=== PATIENT | male | born 1955 | race African-American/Black ===

== ENCOUNTER 2018-07-17 09:31 | Emergency (ER) | payer SELFPAY ==
[~2018-07-17] VITALS: Ht 175.3 cm; Wt 134.0 kg
[~2018-07-17 09:31] MED LIST: ALBU18HF2 IH; HYDR12.529 PO; LISI-186 PO; LORA10TA7 PO; METF-414 PO; cholesterol
[2018-07-17 10:30] VITALS: BP 140/81
[2018-07-17] MEDS ORDERED: KETOROLAC 60MG/2ML VIAL IM ONE (11:00)
== END 2018-07-17 12:35 | disposition home or self-care (01) ==
LOC: ER 09:31
DX: S90.31XA Contusion of right foot, initial encounter (principal); M10.9 Gout, unspecified; E78.00 Pure hypercholesterolemia, unspecified; I10 Essential (primary) hypertension; F17.200 Nicotine dependence, unspecified, uncomplicated; X58.XXXA Exposure to other specified factors, initial encounter; Y93.89 Activity, other specified; Y92.89 Other specified places as the place of occurrence of the external cause; Y99.8 Other external cause status; Z79.899 Other long term (current) drug therapy
CPT/HCPCS: 73620; 96372; 99283; J1885; Z7610

== ENCOUNTER 2020-08-27 10:15 | Inpatient (IN) | payer OTHER ==
[~2020-08-27] VITALS: Ht 182.9 cm; Wt 131.2 kg
[~2020-08-27 10:15] MED LIST changes: -cholesterol; +cholesterol PO
[2020-08-27] MEDS ORDERED: METOPROLOL TARTRATE 5MG/5ML VIAL IV STA (10:49)
[2020-08-27] MEDS ORDERED: FUROSEMIDE 40MG/4ML VIAL IV ONE (11:00)
[2020-08-27] MEDS ORDERED: ASPIRIN 325MG EC TABLET PO ONE (11:00)
[2020-08-27] MEDS ORDERED: NITROGLYCERIN OINT 1GM/INCH UDPKT TD ONE (11:00)
[2020-08-27 11:17] LABS: BASOPHILS % 1.1 % (0.0-2.0); EOSINOPHILS % 1.2 % (0.0-5.0); HEMATOCRIT. 44.3 % (42.0-52.0); HEMOGLOBIN. 14.6 g/dL (14.0-18.0); LYMPHOCYTES % 19.3 % (20.0-50.0); MEAN CORPUSCULAR HEMOGLOBIN 26.9 pg (28.0-32.0); MEAN CORPUSCULAR VOLUME 81.4 fL (80.0-94.0); MONOCYTES % 14.9 % (2.0-8.0); NEUTROPHILS % 63.5 % (40.0-76.0); PLATELET 259 x1000/uL (130-400); RED BLOOD CELL COUNT 5.44 mill/uL (4.7-6.1); RED CELL DISTRIBUTION WIDTH 16.7 % (11.6-14.6)
[2020-08-27 11:22] LABS: CHLORIDE 111 mEq/L (98-107)
[2020-08-27] MEDS ORDERED: METOPROLOL TARTRATE 5MG/5ML VIAL IV PRN (14:45)
[2020-08-27] MEDS ORDERED: POTASSIUM CHLORIDE 20MEQ TABLET SR PO SCH (15:00)
[2020-08-27] MEDS: METOPROLOL TARTRATE 25MG TABLET PO SCH ×2 (15:24→23:00)
[2020-08-27] MEDS: ENOXAPARIN 40MG/0.4ML SYR SUBCUT SCH (17:00)
[2020-08-27] MEDS ORDERED: FUROSEMIDE 40MG/4ML VIAL IVP SCH ×2 (17:00→20:45)
[2020-08-27 17:30] VITALS: BP 136/115
[2020-08-27] MEDS ORDERED: CLONIDINE 0.1MG TABLET PO PRN (17:30)
[2020-08-27] MEDS ORDERED: NA PHOS,M-B/NA PHOS,DI-BA ENEMA 118ML PR PRN (17:30)
[2020-08-27] MEDS ORDERED: DIPHENHYDRAMINE 50MG/ML VIAL IV PRN (17:30)
[2020-08-27] MEDS ORDERED: LORAZEPAM 0.5MG TABLET PO PRN (17:30)
[2020-08-27] MEDS ORDERED: ONDANSETRON HCL 4MG/2ML INJ IV PRN (17:30)
[2020-08-27] MEDS ORDERED: ACETAMINOPHEN 650MG SUPP PR PRN (17:30)
[2020-08-27] MEDS ORDERED: MAGNESIUM/ALUMINUM HYDROXIDE/SIMETHICONE 30ML UDC PO PRN (17:30)
[2020-08-27] MEDS ORDERED: DEXTROSE 50% WATER 50ML SYRINGE IV PRN (17:30)
[2020-08-27] MEDS ORDERED: IPRATROPIUM/ALBUTEROL 0.5-3(2.5)MG/3ML NEB NEB PRN (17:30)
[2020-08-27] MEDS ORDERED: DOCUSATE SODIUM 100MG CAPSULE PO PRN (17:30)
[2020-08-27] MEDS ORDERED: MORPHINE SULFATE 2 MG/ML CPJ (NOT FOR IM USE) IV PRN (17:30)
[2020-08-27] MEDS ORDERED: ACETAMINOPHEN 325MG TABLET PO PRN (17:30)
[2020-08-27] MEDS: BLOOD SUGAR DIAGNOSTIC STRIP TEST SCH ×2 (18:00→21:00)
[2020-08-27] MEDS ORDERED: METHYLPREDNISOLONE SOD SUCC 40 MG/ML VIAL IV SCH (18:00)
[2020-08-27] MEDS ORDERED: LEVOFLOXACIN 500MG PREMIX 100 ML IV SCH (18:00)
[2020-08-27] MEDS: INSULIN LISPRO 100 UNITS/ML SUBCUT SCH ×2 (18:14→21:00)
[2020-08-27] MEDS ORDERED: INDO-13 PO (18:23)
[2020-08-27 18:34] VITALS: BP 136/115
[2020-08-27 19:29] LABS: BG BASE EXCESS -2.4 mmol/L (-2.0-2.0); BG CARBOXYHEMOGLOBIN 1.1 % (0.5-1.5); BG DEOXYHEMOGLOBIN 5.6 % (0.0-5.0); BG HCO3 ACT 20.5 mmol/L (22.0-26.0); BG METHEMOGLOBIN 0.1 % (0.0-1.5); BG OXYGEN SATURATION 94.3 % (92.0-98.5); BG OXYHEMOGLOBIN 93.2 % (94.0-97.0); BG PCO2 30.9 mmHg (35.0-45.0); BG PH 7.439 (7.350-7.450); BG PO2 69.5 mmHg (75.0-100.0); BG SAMPLE SITE LEFT RADIAL; BG TOTAL HEMOGLOBIN 15.9 g/dL (12.0-18.0); BG VENT MODE ROOM AIR
[2020-08-27 20:00] VITALS: BP 94/54
[2020-08-27] MEDS ORDERED: PNEUMOCOCCAL 23-VAL P-SAC VAC 0.5 ML IM ONE (20:00)
[2020-08-27 20:14] LABS: CHLORIDE 110 mEq/L (98-107)
[2020-08-27 20:20] LABS: INR 1.2; PROTHROMBIN TIME 12.8 sec (9.6-11.0)
[2020-08-27] MEDS: FAMOTIDINE 20MG TABLET PO SCH (21:59)
[2020-08-27] MEDS: METHYLPREDNISOLONE SOD SUCC 40 MG/ML VIAL IV SCH (22:26)
[2020-08-27] MEDS: LEVOFLOXACIN 500MG PREMIX 100 ML IV SCH (22:27)
[2020-08-27] MEDS: HYDROCODONE/ACETAMINOPHEN 5/325MG TABLET PO PRN (22:43)
[2020-08-27 23:47] LABS: CREATINE KINASE MB FRACTION 2.7 ng/mL (0.5-3.6)
[2020-08-28] VITALS (8 sets, daily range): BP systolic 94–132; BP diastolic 55–94
[2020-08-28 03:02] LABS: CLARITY URINE CLOUDY (CLEAR); COLOR URINE YELLOW (YELLOW); KETONES URINE NEGATIVE (NEGATIVE); LEUKOCYTE ESTERASE URINE NEGATIVE (NEGATIVE); NITRITE URINE NEGATIVE (NEGATIVE); OCCULT BLOOD URINE NEGATIVE (NEGATIVE); PROTEIN URINE 2+ (NEGATIVE); SPECIFIC GRAVITY URINE 1.013 (1.005-1.030)
[2020-08-28 03:17] LABS: *AMPHETAMINES SCREEN URINE NEGATIVE (NEGATIVE); *BARBITURATES SCREEN URINE NEGATIVE (NEGATIVE); *BENZODIAZEPINES SCREEN URINE NEGATIVE (NEGATIVE); *COCAINE SCREEN URINE NEGATIVE (NEGATIVE); METHADONE URINE SCREEN NEGATIVE (NEGATIVE); OPIATES URINE SCREEN NEGATIVE (NEGATIVE)
[2020-08-28 03:18] LABS: CANNABINOID URINE SCREEN NEGATIVE (NEGATIVE); PHENCYCLIDINE URINE SCREEN NEGATIVE (NEGATIVE)
[2020-08-28 06:24] LABS: BASOPHILS % 0.8 % (0.0-2.0); EOSINOPHILS % 0.1 % (0.0-5.0); HEMATOCRIT. 49.9 % (42.0-52.0); HEMOGLOBIN. 16.6 g/dL (14.0-18.0); LYMPHOCYTES % 13.6 % (20.0-50.0); MEAN CORPUSCULAR HEMOGLOBIN 27.4 pg (28.0-32.0); MEAN CORPUSCULAR VOLUME 82.4 fL (80.0-94.0); MEAN PLATELET VOLUME 8.6 fl (7.4-10.4); NEUTROPHILS % 82.5 % (40.0-76.0); PLATELET 210 x1000/uL (130-400); RED BLOOD CELL COUNT 6.06 mill/uL (4.7-6.1); RED CELL DISTRIBUTION WIDTH 16.9 % (11.6-14.6)
[2020-08-28 06:30] LABS: T4 FREE 1.3 ng/dL (0.76-1.46)
[2020-08-28 06:32] LABS: CREATINE KINASE MB FRACTION 2.8 ng/mL (0.5-3.6)
[2020-08-28 06:33] LABS: PROSTRATE SPECIFIC AG TOTAL 0.57 ng/mL (0.0-4.0)
[2020-08-28] MEDS: ENOXAPARIN 40MG/0.4ML SYR SUBCUT SCH ×2 (06:38→19:00)
[2020-08-28] MEDS: BLOOD SUGAR DIAGNOSTIC STRIP TEST SCH ×3 (06:38→21:10)
[2020-08-28] MEDS: INSULIN LISPRO 100 UNITS/ML SUBCUT SCH ×4 (07:40→21:00)
[2020-08-28] MEDS: IPRATROPIUM/ALBUTEROL 0.5-3(2.5)MG/3ML NEB HHN SCH ×4 (09:05→22:06)
[2020-08-28] MEDS: METOPROLOL TARTRATE 25MG TABLET PO SCH (09:37)
[2020-08-28] MEDS: METHYLPREDNISOLONE SOD SUCC 40 MG/ML VIAL IV SCH (09:37)
[2020-08-28] MEDS: ASPIRIN 81MG EC TABLET PO SCH (09:37)
[2020-08-28] MEDS ORDERED: SODIUM POLYSTYRENE SULFONATE 15 G/60 ML BOT PO SCH (10:00)
[2020-08-28] MEDS ORDERED: DILTIAZEM HCL 30MG TABLET PO SCH (10:00)
[2020-08-28] MEDS: HYDROCODONE/ACETAMINOPHEN 5/325MG TABLET PO PRN ×2 (10:38→21:39)
[2020-08-28] MEDS ORDERED: LORAZEPAM 2MG/ML CPJ IV PRN (11:15)
[2020-08-28 14:13] LABS: BG BASE EXCESS -3.7 mmol/L (-2.0-2.0); BG CARBOXYHEMOGLOBIN 1.2 % (0.5-1.5); BG FRACTION INSPIRED OXYGEN 21; BG HCO3 ACT 20.3 mmol/L (22.0-26.0); BG METHEMOGLOBIN 0.1 % (0.0-1.5); BG OXYGEN SATURATION 93.9 % (92.0-98.5); BG OXYHEMOGLOBIN 92.7 % (94.0-97.0); BG PH 7.393 (7.350-7.450); BG PO2 72.4 mmHg (75.0-100.0); BG SAMPLE SITE LEFT RADIAL; BG TOTAL HEMOGLOBIN 16.2 g/dL (12.0-18.0); BG VENT MODE ROOM AIR
[2020-08-28] MEDS ORDERED: DOBUTAMINE 250MG PREMIX 250 ML IV SCH (15:00)
[2020-08-28] MEDS ORDERED: METHYLPREDNISOLONE SOD SUCC 40 MG/ML VIAL IV SCH (15:00)
[2020-08-28] MEDS: ISOSORB DINIT/HYDRALAZINE HCL 20/37.5MG TABLET PO SCH ×2 (16:09→21:36)
[2020-08-28] MEDS: CARVEDILOL 3.125 MG TABLET PO SCH ×2 (16:09→20:57)
[2020-08-28] MEDS: FAMOTIDINE 20MG TABLET PO SCH (20:57)
[2020-08-28] MEDS: GUAIFENESIN 200MG/10ML SUGAR FREE UDC PO PRN (21:16)
[2020-08-28] MEDS: LEVOFLOXACIN 500MG PREMIX 100 ML IV SCH (21:35)
[2020-08-28] MEDS: DOBUTAMINE 250MG PREMIX 250 ML IV SCH (23:30)
[2020-08-29] VITALS (12 sets, daily range): BP systolic 112–159; BP diastolic 42–95
[2020-08-29] MEDS: IPRATROPIUM/ALBUTEROL 0.5-3(2.5)MG/3ML NEB HHN SCH ×4 (01:38→21:13)
[2020-08-29] MEDS: ENOXAPARIN 40MG/0.4ML SYR SUBCUT SCH ×2 (05:46→17:58)
[2020-08-29] MEDS: ISOSORB DINIT/HYDRALAZINE HCL 20/37.5MG TABLET PO SCH ×3 (05:46→21:03)
[2020-08-29] MEDS: DOBUTAMINE 250MG PREMIX 250 ML IV SCH ×2 (05:56→23:47)
[2020-08-29 06:17] LABS: BASOPHILS % 0.3 % (0.0-2.0); HEMATOCRIT. 43.4 % (42.0-52.0); HEMOGLOBIN. 14.3 g/dL (14.0-18.0); LYMPHOCYTES % 11.6 % (20.0-50.0); MEAN CORPUSCULAR VOLUME 81.9 fL (80.0-94.0); MEAN PLATELET VOLUME 8.2 fl (7.4-10.4); MONOCYTES % 10.6 % (2.0-8.0); NEUTROPHILS % 77.5 % (40.0-76.0); PLATELET 234 x1000/uL (130-400); RED CELL DISTRIBUTION WIDTH 16.8 % (11.6-14.6)
[2020-08-29 06:18] LABS: CHLORIDE 106 mEq/L (98-107)
[2020-08-29 06:26] LABS: PHOSPHORUS 4.7 mg/dL (2.5-4.9)
[2020-08-29] MEDS: BLOOD SUGAR DIAGNOSTIC STRIP TEST SCH ×4 (06:27→20:36)
[2020-08-29] MEDS: INSULIN LISPRO 100 UNITS/ML SUBCUT SCH ×4 (07:20→20:38)
[2020-08-29] MEDS: ASPIRIN 81MG EC TABLET PO SCH (08:24)
[2020-08-29] MEDS: CARVEDILOL 3.125 MG TABLET PO SCH ×2 (08:25→21:02)
[2020-08-29] MEDS: METHYLPREDNISOLONE SOD SUCC 40 MG/ML VIAL IV SCH ×2 (08:25→17:58)
[2020-08-29] MEDS: FUROSEMIDE 40MG/4ML VIAL IVP SCH ×2 (10:31→17:58)
[2020-08-29] MEDS ORDERED: BISACODYL 5MG TABLET PO PRN (11:15)
[2020-08-29] MEDS: HYDROCODONE/ACETAMINOPHEN 5/325MG TABLET PO PRN ×2 (13:30→18:08)
[2020-08-29] MEDS: LEVOFLOXACIN 500MG TABLET PO SCH (14:28)
[2020-08-29] MEDS: FAMOTIDINE 20MG TABLET PO SCH (21:02)
[2020-08-30] VITALS (12 sets, daily range): BP systolic 125–164; BP diastolic 53–90
[2020-08-30] MEDS: IPRATROPIUM/ALBUTEROL 0.5-3(2.5)MG/3ML NEB HHN SCH ×4 (00:34→21:09)
[2020-08-30] MEDS: ENOXAPARIN 40MG/0.4ML SYR SUBCUT SCH ×2 (05:48→17:36)
[2020-08-30] MEDS: ISOSORB DINIT/HYDRALAZINE HCL 20/37.5MG TABLET PO SCH ×3 (05:48→21:34)
[2020-08-30] MEDS: BLOOD SUGAR DIAGNOSTIC STRIP TEST SCH ×4 (06:03→21:26)
[2020-08-30 06:30] LABS: BASOPHILS % 0.4 % (0.0-2.0); HEMATOCRIT. 44.1 % (42.0-52.0); HEMOGLOBIN. 14.5 g/dL (14.0-18.0); LYMPHOCYTES % 8.3 % (20.0-50.0); MEAN CORPUSCULAR HEMOGLOBIN 27.1 pg (28.0-32.0); MEAN CORPUSCULAR VOLUME 82.2 fL (80.0-94.0); MONOCYTES % 5.9 % (2.0-8.0); NEUTROPHILS % 85.4 % (40.0-76.0); PLATELET 225 x1000/uL (130-400); RED BLOOD CELL COUNT 5.37 mill/uL (4.7-6.1); RED CELL DISTRIBUTION WIDTH 17.2 % (11.6-14.6)
[2020-08-30 06:35] LABS: CHLORIDE 108 mEq/L (98-107)
[2020-08-30] MEDS: INSULIN LISPRO 100 UNITS/ML SUBCUT SCH ×4 (07:20→21:00)
[2020-08-30] MEDS: ASPIRIN 81MG EC TABLET PO SCH (08:51)
[2020-08-30] MEDS: METHYLPREDNISOLONE SOD SUCC 40 MG/ML VIAL IV SCH ×2 (08:53→16:17)
[2020-08-30] MEDS: FUROSEMIDE 40MG/4ML VIAL IVP SCH ×3 (08:53→20:12)
[2020-08-30] MEDS: CARVEDILOL 3.125 MG TABLET PO SCH (08:54)
[2020-08-30] MEDS: LEVOFLOXACIN 500MG TABLET PO SCH (11:13)
[2020-08-30] MEDS: FAMOTIDINE 20MG TABLET PO SCH (21:34)
[2020-08-30] MEDS: CARVEDILOL 6.25 MG TABLET PO SCH (21:35)
[2020-08-30] MEDS: HYDROCODONE/ACETAMINOPHEN 5/325MG TABLET PO PRN (21:35)
[2020-08-31] VITALS (12 sets, daily range): BP systolic 123–171; BP diastolic 57–81
[2020-08-31] MEDS: DOBUTAMINE 250MG PREMIX 250 ML IV SCH (00:08)
[2020-08-31] MEDS: ISOSORB DINIT/HYDRALAZINE HCL 20/37.5MG TABLET PO SCH ×3 (05:46→21:18)
[2020-08-31] MEDS: ENOXAPARIN 40MG/0.4ML SYR SUBCUT SCH ×2 (05:47→17:02)
[2020-08-31] MEDS: GUAIFENESIN 200MG/10ML SUGAR FREE UDC PO PRN (05:56)
[2020-08-31] MEDS: BLOOD SUGAR DIAGNOSTIC STRIP TEST SCH ×4 (06:01→20:34)
[2020-08-31 06:55] LABS: HEMATOCRIT. 44.7 % (42.0-52.0); HEMOGLOBIN. 14.9 g/dL (14.0-18.0); MEAN CORPUSCULAR HEMOGLOBIN 27.3 pg (28.0-32.0); MEAN CORPUSCULAR VOLUME 81.8 fL (80.0-94.0); MEAN PLATELET VOLUME 8.2 fl (7.4-10.4); PLATELET 271 x1000/uL (130-400); RED BLOOD CELL COUNT 5.46 mill/uL (4.7-6.1)
[2020-08-31 07:01] LABS: CHLORIDE 105 mEq/L (98-107)
[2020-08-31] MEDS: INSULIN LISPRO 100 UNITS/ML SUBCUT SCH ×4 (07:20→20:34)
[2020-08-31] MEDS: IPRATROPIUM/ALBUTEROL 0.5-3(2.5)MG/3ML NEB HHN SCH ×4 (08:38→21:06)
[2020-08-31] MEDS: METHYLPREDNISOLONE SOD SUCC 40 MG/ML VIAL IV SCH ×2 (09:03→17:02)
[2020-08-31] MEDS: ASPIRIN 81MG EC TABLET PO SCH (09:03)
[2020-08-31] MEDS: CARVEDILOL 6.25 MG TABLET PO SCH ×2 (09:03→20:34)
[2020-08-31] MEDS: FUROSEMIDE 40MG/4ML VIAL IVP SCH ×3 (09:04→17:02)
[2020-08-31] MEDS: LEVOFLOXACIN 500MG TABLET PO SCH (11:05)
[2020-08-31] MEDS: HYDROCODONE/ACETAMINOPHEN 5/325MG TABLET PO PRN (11:05)
[2020-08-31] MEDS: SPIRONOLACTONE 50MG TABLET PO SCH (12:52)
[2020-08-31 13:55] LABS: PLATELET ESTIMATE NORMAL
[2020-08-31] MEDS: FAMOTIDINE 20MG TABLET PO SCH (20:33)
[2020-09-01] VITALS (15 sets, daily range): BP systolic 114–188; BP diastolic 53–105
[2020-09-01] MEDS: DOBUTAMINE 250MG PREMIX 250 ML IV SCH (00:02)
[2020-09-01] MEDS: IPRATROPIUM/ALBUTEROL 0.5-3(2.5)MG/3ML NEB HHN SCH ×4 (01:55→20:17)
[2020-09-01] MEDS: ISOSORB DINIT/HYDRALAZINE HCL 20/37.5MG TABLET PO SCH ×3 (05:52→21:21)
[2020-09-01] MEDS: ENOXAPARIN 40MG/0.4ML SYR SUBCUT SCH ×2 (05:52→18:59)
[2020-09-01] MEDS: BLOOD SUGAR DIAGNOSTIC STRIP TEST SCH ×4 (05:52→21:21)
[2020-09-01 06:38] LABS: BASOPHILS % 0.3 % (0.0-2.0); HEMATOCRIT. 45.3 % (42.0-52.0); HEMOGLOBIN. 15.1 g/dL (14.0-18.0); LYMPHOCYTES % 7.4 % (20.0-50.0); MEAN CORPUSCULAR HEMOGLOBIN 27.2 pg (28.0-32.0); MEAN CORPUSCULAR VOLUME 81.4 fL (80.0-94.0); MEAN PLATELET VOLUME 8.2 fl (7.4-10.4); MONOCYTES % 9.2 % (2.0-8.0); NEUTROPHILS % 83.1 % (40.0-76.0); PLATELET 245 x1000/uL (130-400); RED BLOOD CELL COUNT 5.56 mill/uL (4.7-6.1); RED CELL DISTRIBUTION WIDTH 16.3 % (11.6-14.6)
[2020-09-01 06:55] LABS: CHLORIDE 105 mEq/L (98-107)
[2020-09-01] MEDS: INSULIN LISPRO 100 UNITS/ML SUBCUT SCH ×4 (07:20→21:00)
[2020-09-01] MEDS: METHYLPREDNISOLONE SOD SUCC 40 MG/ML VIAL IV SCH ×2 (09:59→17:51)
[2020-09-01] MEDS: CARVEDILOL 6.25 MG TABLET PO SCH ×2 (10:00→21:21)
[2020-09-01] MEDS: SPIRONOLACTONE 50MG TABLET PO SCH (10:00)
[2020-09-01] MEDS: FUROSEMIDE 40MG/4ML VIAL IVP SCH ×3 (10:00→18:59)
[2020-09-01] MEDS: ASPIRIN 81MG EC TABLET PO SCH (10:00)
[2020-09-01] MEDS: FAMOTIDINE 20MG TABLET PO SCH (21:21)
[2020-09-02] VITALS (12 sets, daily range): BP systolic 121–166; BP diastolic 46–106
[2020-09-02] MEDS: IPRATROPIUM/ALBUTEROL 0.5-3(2.5)MG/3ML NEB HHN SCH ×5 (02:58→21:29)
[2020-09-02] MEDS: BLOOD SUGAR DIAGNOSTIC STRIP TEST SCH ×4 (06:14→21:00)
[2020-09-02] MEDS: ISOSORB DINIT/HYDRALAZINE HCL 20/37.5MG TABLET PO SCH ×3 (06:14→21:55)
[2020-09-02] MEDS: ENOXAPARIN 40MG/0.4ML SYR SUBCUT SCH ×2 (06:17→17:28)
[2020-09-02 07:08] LABS: HEMATOCRIT 47.4 % (42.0-52.0); HEMOGLOBIN 15.4 g/dL (14.0-18.0); MEAN CORPUSCULAR HEMOGLOBIN 26.4 pg (28.0-32.0); MEAN CORPUSCULAR VOLUME 81.1 fL (80.0-94.0); PLATELET 303 x1000/uL (130-400); RED BLOOD CELL COUNT 5.85 mill/uL (4.7-6.1)
[2020-09-02 07:16] LABS: CHLORIDE 105 mEq/L (98-107)
[2020-09-02] MEDS: INSULIN LISPRO 100 UNITS/ML SUBCUT SCH ×4 (07:19→21:00)
[2020-09-02] MEDS: SPIRONOLACTONE 50MG TABLET PO SCH (08:40)
[2020-09-02] MEDS: FUROSEMIDE 40MG/4ML VIAL IVP SCH ×3 (08:40→17:28)
[2020-09-02] MEDS: ASPIRIN 81MG EC TABLET PO SCH (08:40)
[2020-09-02] MEDS: METHYLPREDNISOLONE SOD SUCC 40 MG/ML VIAL IV SCH ×2 (08:40→17:28)
[2020-09-02] MEDS: CARVEDILOL 6.25 MG TABLET PO SCH ×2 (08:41→21:54)
[2020-09-02] MEDS: HYDROCODONE/ACETAMINOPHEN 5/325MG TABLET PO PRN ×2 (10:13→14:29)
[2020-09-02] MEDS: FAMOTIDINE 20MG TABLET PO SCH (21:54)
[2020-09-02] MEDS: DOBUTAMINE 250MG PREMIX 250 ML IV SCH ×2 (23:03)
[2020-09-03] VITALS (16 sets, daily range): BP systolic 84–177; BP diastolic 21–100
[2020-09-03] MEDS: ISOSORB DINIT/HYDRALAZINE HCL 20/37.5MG TABLET PO SCH ×3 (06:00→22:15)
[2020-09-03] MEDS: BLOOD SUGAR DIAGNOSTIC STRIP TEST SCH ×4 (06:29→21:18)
[2020-09-03 07:20] LABS: BASOPHILS % 0.2 % (0.0-2.0); HEMATOCRIT. 50.6 % (42.0-52.0); HEMOGLOBIN. 16.6 g/dL (14.0-18.0); LYMPHOCYTES % 7.5 % (20.0-50.0); MEAN CORPUSCULAR HEMOGLOBIN 26.9 pg (28.0-32.0); MEAN CORPUSCULAR VOLUME 82.1 fL (80.0-94.0); MEAN PLATELET VOLUME 8.3 fl (7.4-10.4); MONOCYTES % 9.1 % (2.0-8.0); NEUTROPHILS % 83.2 % (40.0-76.0); PLATELET 258 x1000/uL (130-400); RED BLOOD CELL COUNT 6.16 mill/uL (4.7-6.1); RED CELL DISTRIBUTION WIDTH 16.5 % (11.6-14.6)
[2020-09-03 07:28] LABS: CHLORIDE 105 mEq/L (98-107)
[2020-09-03] MEDS: CARVEDILOL 6.25 MG TABLET PO SCH ×2 (08:05→12:21)
[2020-09-03] MEDS: INSULIN LISPRO 100 UNITS/ML SUBCUT SCH ×4 (08:05→21:19)
[2020-09-03] MEDS: SPIRONOLACTONE 50MG TABLET PO SCH ×2 (08:05→12:21)
[2020-09-03] MEDS: ASPIRIN 81MG EC TABLET PO SCH (08:06)
[2020-09-03] MEDS: METHYLPREDNISOLONE SOD SUCC 40 MG/ML VIAL IV SCH ×2 (08:10→17:43)
[2020-09-03] MEDS: FUROSEMIDE 40MG/4ML VIAL IVP SCH ×2 (08:10→12:22)
[2020-09-03] MEDS ORDERED: HEPARIN SODIUM 1,000 UNIT/1ML VIAL IV ONE (08:22)
[2020-09-03] MEDS ORDERED: NITROGLYCERIN 50MCG/ML 10ML VIAL (CATH LAB) IV ONE (08:22)
[2020-09-03] MEDS ORDERED: NICARDIPINE 100MCG/ML 10ML VIAL (CATH LAB) IV ONE (08:22)
[2020-09-03] MEDS: IPRATROPIUM/ALBUTEROL 0.5-3(2.5)MG/3ML NEB HHN SCH ×2 (08:30)
[2020-09-03] MEDS ORDERED: POTASSIUM CHLORIDE 20MEQ TABLET SR PO NR (12:15)
[2020-09-03] MEDS: HYDROCODONE/ACETAMINOPHEN 5/325MG TABLET PO PRN (12:22)
[2020-09-03] MEDS ORDERED: LIDOCAINE HCL 1% 20ML VIAL (Pyxis) INJ ONE (13:06)
[2020-09-03] MEDS ORDERED: IODIXANOL 320MG/ML 100 ML BOTTLE IV ONE (13:06)
[2020-09-03] MEDS ORDERED: ASPIRIN/SOD BICARB/CITRIC ACID 324MG TAB EFF ONE (13:22)
[2020-09-03] MEDS ORDERED: MIDAZOLAM HCL 2 MG/2 ML VIAL ONE (13:57)
[2020-09-03] MEDS ORDERED: FENTANYL CITRATE/PF 50MCG/ML 2ML VIAL ONE (13:57)
[2020-09-03] MEDS ORDERED: ATROPINE SULFATE 1MG/10ML SYR IV PRN (14:30)
[2020-09-03] MEDS ORDERED: ACETAMINOPHEN 325MG TABLET PO PRN (14:30)
[2020-09-03] MEDS ORDERED: ONDANSETRON HCL 4MG/2ML INJ IV PRN (14:30)
[2020-09-03] MEDS ORDERED: MORPHINE SULFATE 2 MG/ML CPJ (NOT FOR IM USE) IV PRN (14:30)
[2020-09-03] MEDS ORDERED: SODIUM CHLORIDE 0.45% 500 ML IV SCH (14:30)
[2020-09-03] MEDS: FAMOTIDINE 20MG TABLET PO SCH (21:20)
[2020-09-03] MEDS: FUROSEMIDE 40MG TABLET PO SCH (21:20)
[2020-09-03] MEDS: CARVEDILOL 12.5MG TABLET PO SCH (21:20)
[2020-09-04] VITALS (9 sets, daily range): BP systolic 106–119; BP diastolic 66–73
[2020-09-04] MEDS: DOBUTAMINE 250MG PREMIX 250 ML IV SCH (00:55)
[2020-09-04] MEDS: ISOSORB DINIT/HYDRALAZINE HCL 20/37.5MG TABLET PO SCH ×2 (05:32→14:00)
[2020-09-04] MEDS: ENOXAPARIN 40MG/0.4ML SYR SUBCUT SCH (05:33)
[2020-09-04] MEDS: BLOOD SUGAR DIAGNOSTIC STRIP TEST SCH ×3 (06:04→17:25)
[2020-09-04 06:26] LABS: BASOPHILS % 0.6 % (0.0-2.0); EOSINOPHILS % 0.4 % (0.0-5.0); HEMATOCRIT. 53.2 % (42.0-52.0); HEMOGLOBIN. 17.1 g/dL (14.0-18.0); LYMPHOCYTES % 15.4 % (20.0-50.0); MEAN CORPUSCULAR HEMOGLOBIN 26.4 pg (28.0-32.0); MEAN CORPUSCULAR VOLUME 82.3 fL (80.0-94.0); MEAN PLATELET VOLUME 8.2 fl (7.4-10.4); MONOCYTES % 11.1 % (2.0-8.0); NEUTROPHILS % 72.5 % (40.0-76.0); PLATELET 287 x1000/uL (130-400); RED BLOOD CELL COUNT 6.46 mill/uL (4.7-6.1); RED CELL DISTRIBUTION WIDTH 16.5 % (11.6-14.6)
[2020-09-04 06:36] LABS: CHLORIDE 103 mEq/L (98-107)
[2020-09-04] MEDS: INSULIN LISPRO 100 UNITS/ML SUBCUT SCH ×3 (07:20→17:20)
[2020-09-04] MEDS: HYDROCODONE/ACETAMINOPHEN 5/325MG TABLET PO PRN (07:23)
[2020-09-04] MEDS ORDERED: LOSARTAN POTASSIUM 25 MG TABLET PO SCH (09:00)
[2020-09-04] MEDS: ASPIRIN 81MG EC TABLET PO SCH (10:21)
[2020-09-04] MEDS: METHYLPREDNISOLONE SOD SUCC 40 MG/ML VIAL IV SCH (10:21)
[2020-09-04] MEDS: CARVEDILOL 12.5MG TABLET PO SCH (10:35)
[2020-09-04] MEDS: SPIRONOLACTONE 50MG TABLET PO SCH (10:35)
[2020-09-04] MEDS: FUROSEMIDE 40MG TABLET PO SCH (10:36)
[2020-09-04] MEDS ORDERED: COR12 MT (13:33)
[2020-09-04] MEDS ORDERED: ISOS1TAB MT (13:33)
[2020-09-04] MEDS ORDERED: LIP40 MT ×2 (13:33)
[2020-09-04] MEDS ORDERED: SPIR50TA5 MT (13:33)
[2020-09-04] MEDS ORDERED: FURO-151 MT (13:33)
[2020-09-04] MEDS ORDERED: LOSA25TA3 MT (13:33)
[2020-09-04] MEDS ORDERED: ASPI-1497 MT (13:33)
[2020-09-04] MEDS ORDERED: IPRA3AMP9 NEB (13:33)
== END 2020-09-04 18:45 | disposition home or self-care (01) | DRG 280 ==
LOC: ER 10:15 → 8WST 13:01 → ENRESERV 15:25 → SUPCPDRO 17:07 → 3WST 08-28 16:30
PROVIDERS: ADMIT Internal Medicine; ATTEND Internal Medicine
PROC: 4A023N7 Measurement of Cardiac Sampling and Pressure, Left Heart, Percutaneous Approach (ICD-10-PCS; principal; 2020-09-03)
PROC: B2111ZZ Fluoroscopy of Multiple Coronary Arteries using Low Osmolar Contrast (ICD-10-PCS; 2020-09-03)
DX: I21.4 Non-ST elevation (NSTEMI) myocardial infarction (principal); J96.01 Acute respiratory failure with hypoxia; I50.23 Acute on chronic systolic (congestive) heart failure; J44.1 Chronic obstructive pulmonary disease with (acute) exacerbation; I47.1 Supraventricular tachycardia; I42.0 Dilated cardiomyopathy; Z68.41 Body mass index [BMI] 40.0-44.9, adult; N17.9 Acute kidney failure, unspecified; I48.92 Unspecified atrial flutter; I27.20 Pulmonary hypertension, unspecified; I11.0 Hypertensive heart disease with heart failure; E11.9 Type 2 diabetes mellitus without complications; E78.5 Hyperlipidemia, unspecified; E87.5 Hyperkalemia; F17.210 Nicotine dependence, cigarettes, uncomplicated; K21.9 Gastro-esophageal reflux disease without esophagitis; E78.00 Pure hypercholesterolemia, unspecified; I49.3 Ventricular premature depolarization; E66.01 Morbid (severe) obesity due to excess calories; Z20.822 Contact with and (suspected) exposure to COVID-19; T50.1X5A Adverse effect of loop [high-ceiling] diuretics, initial encounter; I08.2 Rheumatic disorders of both aortic and tricuspid valves; T50.2X5A Adverse effect of carbonic-anhydrase inhibitors, benzothiadiazides and other diuretics, initial encounter; Z88.8 Allergy status to other drugs, medicaments and biological substances; Z79.899 Other long term (current) drug therapy; Z79.84 Long term (current) use of oral hypoglycemic drugs; Z79.51 Long term (current) use of inhaled steroids; Z71.6 Tobacco abuse counseling; Z71.3 Dietary counseling and surveillance; Y92.89 Other specified places as the place of occurrence of the external cause; Z68.39 Body mass index [BMI] 39.0-39.9, adult
CPT/HCPCS: 36415; 36600; 71045; 76770; 78580; 80048; 80053; 80061; 80305; 81003; 82375; 82550; 82553; 82607; 82805; 82962; 83036; 83735; 83880; 84100; 84132; 84153; 84439; 84443; 84481; 84484; 85025; 85027; 86703; 86850; 86900; 87426; 93005; 93306; 93458; 93970; 94618; 94640; 99285; C1769; C1887; C1893; J1250; J1644; J1650; J1815; J1940; J1956; J2250; J2270; J2920; J3010; J3490; Q9967; G0103